=== PATIENT | male | born 1970 | race Caucasian/White ===

== ENCOUNTER 2018-11-04 05:38 | Day surgery (SDC) | payer BC ==
[~2018-11-04] VITALS: Ht 177.8 cm; Wt 86.2 kg
[2018-11-04] VITALS (14 sets, daily range): BP systolic 110–133; BP diastolic 66–85; PULSE 72–136; RESP 11–22; Ht 177.8 cm; Wt 86.2 kg
[2018-11-04] MEDS ORDERED: LACTATED RINGER'S 1,000 ML IV SCH (06:30)
[2018-11-04] MEDS ORDERED: CEFAZOLIN 1 GM INJ ONE (06:45)
[2018-11-04] MEDS ORDERED: DESFLURANE 15 MIN ONE (06:45)
[2018-11-04] MEDS ORDERED: LIDOCAINE 2% (SDV) 5 ML INJ ONE (06:45)
[2018-11-04] MEDS ORDERED: MIDAZOLAM 1 MG/ML 2 ML INJ ONE (06:45)
[2018-11-04] MEDS ORDERED: FENTAnyl 50 MCG/ML VIAL ONE (06:45)
[2018-11-04] MEDS ORDERED: PROPOFOL 20 ML ONE (06:45)
[2018-11-04] MEDS ORDERED: ROPIVACAINE 0.5 % 30 ML VIAL ONE (06:47)
[2018-11-04] MEDS ORDERED: POLYMYXIN/BACITRACIN 1L IRRIG ONE (06:53)
[2018-11-04] MEDS ORDERED: DEXAMETHASONE 4 MG/ML 5 ML INJ ONE (07:51)
[2018-11-04] MEDS ORDERED: METOCLOPRAMIDE 10 MG INJ ONE (07:51)
[2018-11-04] MEDS ORDERED: ONDANSETRON 4 MG INJ ONE (07:51)
[2018-11-04] MEDS ORDERED: FAMOTIDINE 20 MG INJ ONE (07:52)
[2018-11-04] MEDS ORDERED: HYDROmorphONE 2 MG/ML SYG ONE (08:04)
[2018-11-04] MEDS ORDERED: SUCCINYLCHOLINE CHLORIDE 100 MG/5 ML SYG IV ONE (08:27)
[2018-11-04] MEDS ORDERED: HYDROmorphONE 1 MG/5 ML IV SYRINGE IV PRN ×3 (08:30)
[2018-11-04] MEDS ORDERED: LABETALOL HCL 20MG INJ IV PRN (08:30)
[2018-11-04] MEDS ORDERED: MEPERIDINE 25 MG INJ IV PRN (08:30)
[2018-11-04] MEDS ORDERED: OXYCODONE/ACETAMINOPHEN (5/325) TAB PO PRN ×2 (08:30)
[2018-11-04] MEDS ORDERED: ONDANSETRON 4 MG INJ IV PRN (08:30)
[2018-11-04] MEDS ORDERED: hydrALAzine 20 MG INJ IV PRN (08:30)
[2018-11-04] MEDS ORDERED: BUPIVACAINE 0.5%/EPI (SDV) 30 ML INJ ONE (08:49)
== END 2018-11-04 12:05 | disposition home or self-care (01) ==
LOC: SDS 05:38
PROVIDERS: ATTEND Orthopaedic Surgery Adult Reconstructive Orthopaedic Surgery
DX: T84.84XD Pain due to internal orthopedic prosthetic devices, implants and grafts, subsequent encounter (principal); M79.605 Pain in left leg; Y79.3 Surgical instruments, materials and orthopedic devices (including sutures) associated with adverse incidents; Y83.8 Other surgical procedures as the cause of abnormal reaction of the patient, or of later complication, without mention of misadventure at the time of the procedure
CPT/HCPCS: 86850; 86900; 86901; 88300; J0690; J1100; J1170; J2250; J2405; J2765; J2795; J3010